=== PATIENT | male | born 1990 | race Caucasian/White ===

== ENCOUNTER 2019-03-22 13:44 | Emergency (ER) | payer SELFPAY ==
[2019-03-22] MEDS ORDERED: Sodium Chloride 0.9% 1,000 ML IV ONE (14:03)
[2019-03-22] MEDS ORDERED: Ketorolac 30 MG/ML SDV IVPUSH ONE (14:03)
[2019-03-22] MEDS ORDERED: Ondansetron 4 MG/2 ML SDV IVPUSH ONE (14:03)
[2019-03-22] MEDS ORDERED: Pantoprazole 40 MG Vial IVPUSH ONE (14:05)
[2019-03-22] MEDS ORDERED: Sodium Chloride 0.9% 10 ML SDV IV STA (14:07)
[2019-03-22 14:26] LABS: BLOOD UREA NITROGEN,BUN 17 mg/dL (7.0-18.0); CARBON DIOXIDE,CO2 29.3 mmol/L (21.0-32.0); CHLORIDE,CL 104 mmol/L (98-107); GLUCOSE RANDOM 95 mg/dL (74-106); LIPASE 169 U/L (73-393); POTASSIUM,K 3.8 mmol/L (3.5-5.1); SODIUM,NA 141 mmol/L (136-148)
--- NOTE | 2019-03-22 14:26 | EDM.PDOC ---
ED HPI GENERAL MEDICAL PROBLEM - General Chief Complaint: Abdominal Pain Stated Complaint: ABDOMINAL PAIN Time Seen by Provider: 03/22/19 13:48 Source of Information: Reports: Patient History Limitations: Reports: No Limitations - History of Present Illness INITIAL COMMENTS - FREE TEXT/NARRATIVE: HISTORY AND PHYSICAL: History of present illness: Patient is a 28-year-old male presents to the ED today for concern of upper abdominal pain 4 days. Patient states the pain had been coming and going over the past 2 days has become constant. Patient denies any abdominal surgeries or any health history. Patient states he does drink frequently but does not drink daily. Patient states he does smoke cigarettes at about half a pack to a pack a day. Patient states he's been drinking Pepto-Bismol constantly over the past 4 days with mild relief of symptoms. Patient states he has noticed over the past 1 -2 days that his stools are dark. Patient denies any other symptoms or concerns. Patient denies fever, chills, chest pain, shortness of breath, or cough. Denies headache, neck stiff ness, change in vision, syncope, or near syncope. Denies nausea, vomiting, diarrhea, constipation, or dysuria. Has not noted any blood in urine. Patient has been eating and drinking appropriately. Review of systems: As per history of present illness and below otherwise all systems reviewed and negative. Past medical history: As per history of present illness and as reviewed below otherwise noncontributory. Surgical history: As per history of present illness and as reviewed below otherwise noncontributory. Social history: See social history for further information Family history: As per history of present illness and as reviewed below otherwise noncontributory. Physical exam: General: Patient is alert, oriented, and in no acute distress. Patient laying comfortably on exam table. HEENT: Atraumatic, normocephalic, pupils equal and reactive bilaterally, negative for conjunctival pallor or scleral icterus, mucous membranes moist, TMs normal bilaterally, throat clear, neck supple, nontender, trachea midline. No drooling or trismus noted. No meningeal signs. No hot potato voice noted. Lungs: Clear to auscultation, breath sounds equal bilaterally, chest nontender. Heart: S1S2, regular rate and rhythm without overt murmur Abdomen: Soft, nondistended. Moderate tenderness of the epigastric area with guarding. Negative rebound. Negative for masses or hepatosplenomegaly. Negative for costovertebral tenderness. Pelvis: Stable nontender. Genitourinary: Deferred. Rectal: Hemoccult positive. Tone intact. No obvious fissures, hemorrhoids, rashes, or lesions. Skin: Intact, warm, dry. No lesions or rashes noted. Extremities: Atraumatic, negative for cords or calf pain. Neurovascular unremarkable. Neuro: Awake, alert, oriented. Cranial nerves II through XII unremarkable. Cerebellum unremarkable. Motor and sensory unremarkable throughout. Exam nonfocal. Notes: Dr. Carvalho verbally involved in patient care. Hemoccult positive. Dr. Chao, general surgery, discussed patient diagnostics and physical exam. She desires patient to call clinic tomorrow and establish at appointment time with her as outpatient. Discussed the importance for follow-up with general surgery. Voices understanding and is agreeable to plan of care. Denies any further questions or concerns at this time. Diagnostics: CBC, CMP, UA, lipase, abdominal pelvic CT, hemeoccult Therapeutics: Saline, Toradol, Zofran, Protonix Prescription: None Impression: Epigastric abdominal pain Melena Plan: 1. Take over the counter Prilosec 2 times a day until follow up with general surgery. 2. You can take Tylenol as directed for pain and discomfort. 3. Follow up with general surgery, Dr. Chao, as discussed. Call the clinic in the morning to establish an appointment time. 4. Return to the ED as needed and as discussed. Definitive disposition and diagnosis as appropriate pending reevaluation and review of above. epigastric Pain Score (Numeric/FACES): 10 - Related Data Allergies Allergy/AdvReac Type Severity Reaction Status Date / Time No Known Allergies Allergy Verified 03/22/19 13:52 Home Meds: Home Meds . [No Known Home Meds] 03/22/19 [History] Past Medical History HEENT History: Reports: None Cardiovascular History: Reports: None Respiratory History: Reports: None Gastrointestinal History: Reports: None Genitourinary History: Reports: None Musculoskeletal History: Reports: None Neurological History: Reports: None Psychiatric History: Reports: None Endocrine/Metabolic History: Reports: None Hematologic History: Reports: None Immunologic History: Reports: None Oncologic (Cancer) History: Reports: None Dermatologic History: Reports: None - Past Surgical History Head Surgeries/Procedures: Reports: None HEENT Surgical History: Reports: None Cardiovascular Surgical History: Reports: None Respiratory Surgical History: Reports: None GI Surgical History: Reports: None Male Surgical History: Reports: None Endocrine Surgical History: Reports: None Neurological Surgical History: Reports: None Musculoskeletal Surgical History: Reports: None Oncologic Surgical History: Reports: None Dermatological Surgical History: Reports: None Social & Family History - Family History Family Medical History: Noncontributory - Tobacco Use Smoking Status *Q: Current Every Day Smoker Years of Tobacco use: 10 Packs/Tins Daily: 1 - Caffeine Use Caffeine Use: Reports: Coffee, Energy Drinks, Soda, Tea - Recreational Drug Use Recreational Drug Use: No ED ROS GENERAL - Review of Systems Review Of Systems: ROS reveals no pertinent complaints other than HPI. ED EXAM, GENERAL - Physical Exam Exam: See Below (See dictation) Course - Vital Signs Last Recorded V/S: Last Vital Signs Temp 97.5 F 03/22/19 13:53 Pulse 107 H 03/22/19 13:53 Resp 18 03/22/19 13:53 BP 123/85 03/22/19 13:53 Pulse Ox 100 03/22/19 13:53 - Orders/Labs/Meds Orders: Active Orders 24 hr Category Date Time Status Hemoccult [Fecal Occult Blood Collection] [RC] Care 03/22/19 14:04 Active ASDIRECTED Labs: Laboratory Tests 03/22/19 03/22/19 03/22/19 Range/Units 13:55 13:55 13:57 WBC 10.00 (4.0-11.0) K/uL RBC 4.48 L (4.50-5.90) M/uL Hgb 13.3 (13.0-17.0) g/dL Hct 39.8 (38.0-50.0) % MCV 88.8 (80.0-98.0) fL MCH 29.7 (27.0-32.0) pg MCHC 33.4 (31.0-37.0) g/dL RDW Std Deviation 47.1 (28.0-62.0) fl RDW Coeff of [place] 15 (11.0-15.0) % Plt Count 303 (150-400) K/uL MPV 10.80 (7.40-12.00) fL Neut % (Auto) 46.6 L (48.0-80.0) % Lymph % (Auto) 42.1 H (16.0-40.0) % [place] % (Auto) 8.1 (0.0-15.0) % Eos % (Auto) 2.8 (0.0-7.0) % Baso % (Auto) 0.4 (0.0-1.5) % Neut # (Auto) 4.7 (1.4-5.7) K/uL Lymph # (Auto) 4.2 H (0.6-2.4) K/uL [place] # (Auto) 0.8 (0.0-0.8) K/uL Eos # (Auto) 0.3 (0.0-0.7) K/uL Baso # (Auto) 0.0 (0.0-0.1) K/uL Nucleated RBC % 0.0 /100WBC Nucleated RBCs # 0 K/uL Sodium 141 (136-148) mmol/L Potassium 3.8 (3.5-5.1) mmol/L Chloride 104 (98-107) mmol/L Carbon Dioxide 29.3 (21.0-32.0) mmol/L BUN 17 (7.0-18.0) mg/dL Creatinine 1.1 (0.8-1.3) mg/dL Est Cr Clr Drug Dosing 96.22 mL/min Estimated GFR (MDRD) > 60.0 ml/min Glucose 95 (74-106) mg/dL Calcium 8.4 L (8.5-10.1) mg/dL Total Bilirubin 0.2 (0.2-1.0) mg/dL AST 26 (15-37) IU/L ALT 28 (14-63) IU/L Alkaline Phosphatase 52 (46-116) U/L Total Protein 7.3 (6.4-8.2) g/dL Albumin 3.6 (3.4-5.0) g/dL Globulin 3.7 (2.6-4.0) g/dL Albumin/Globulin Ratio 1.0 (0.9-1.6) Lipase 169 (73-393) U/L Urine Color YELLOW Urine Appearance CLOUDY Urine pH 7.5 (5.0-8.0) Ur Specific [place] 1.020 (1.001-1.035) Urine Protein NEGATIVE (NEGATIVE) mg/dL Urine Glucose (UA) NEGATIVE (NEGATIVE) mg/dL Urine Ketones NEGATIVE (NEGATIVE) mg/dL Urine Occult Blood NEGATIVE (NEGATIVE) Urine Nitrite NEGATIVE (NEGATIVE) Urine Bilirubin NEGATIVE (NEGATIVE) Urine Urobilinogen 0.2 (<2.0) EU/dL Ur Leukocyte Esterase NEGATIVE (NEGATIVE) Meds: Medications Discontinued Medications Generic Name Dose Route Start Last Admin Trade Name Freq PRN Reason Stop Dose Admin Sodium Chloride 1,000 mls @ 999 mls/hr 03/22/19 14:03 03/22/19 14:16 Normal Saline IV 03/22/19 15:03 999 mls/hr BOLUS ONE Administration Iopamidol 80 ml 03/22/19 14:52 03/22/19 14:52 Isovue Multipack-370 (76%) IVPUSH 03/22/19 14:53 80 ml ONETIME STA Administration Ketorolac Tromethamine 30 mg 03/22/19 14:03 03/22/19 14:16 Toradol IVPUSH 03/22/19 14:04 30 mg ONETIME ONE Administration Ondansetron HCl 4 mg 03/22/19 14:03 03/22/19 14:16 Zofran IVPUSH 03/22/19 14:04 4 mg ONETIME ONE Administration Pantoprazole Sodium 80 mg 03/22/19 14:05 03/22/19 14:16 Protonix Iv IVPUSH 03/22/19 14:06 80 mg .BOLUS ONE Administration Sodium Chloride 20 ml 03/22/19 14:07 03/22/19 14:17 Normal Saline IV 03/22/19 14:08 20 ml STAT STA Administration Departure - Departure Time of Disposition: 15:20 Disposition: Home, Self-Care 01 Clinical Impression: Epigastric abdominal pain, Melena - Discharge Information Referrals: PCP,None [Primary Care Provider] - Forms: ED Department Discharge Additional Instructions: The following information is given to patients seen in the emergency department who are being discharged to home. This information is to outline your options for follow-up care. We provide all patients seen in our emergency department with a follow-up referral. The need for follow-up, as well as the timing and circumstances, are variable depending upon the specifics of your emergency department visit. If you don't have a primary care physician on staff, we will provide you with a referral. We always advise you to contact your personal physician following an emergency department visit to inform them of the circumstance of the visit and for follow-up with them and/or the need for any referrals to a consulting specialist. The emergency department will also refer you to a specialist when appropriate. This referral assures that you have the opportunity for follow-up care with a specialist. All of these measure are taken in an effort to provide you with optimal care, which includes your follow-up. Under all circumstances we always encourage you to contact your private physician who remains a resource for coordinating your care. When calling for follow-up care, please make the office aware that this follow-up is from your recent emergency room visit. If for any reason you are refused follow-up, please contact the [facility] Emergency Department at and asked to speak to the emergency department charge nurse. [facility] [address] [place] [address] [place] [address] [facility] - General Surgery, Dr. Chao Professional [address], [address] [place] [address] 1. Take over the counter Prilosec 2 times a day until follow up with general surgery. 2. You can take Tylenol as directed for pain and discomfort. 3. Follow up with general surgery, Dr. Chao, as discussed. Call the clinic in the morning to establish an appointment time. 4. Return to the ED as needed and as discussed. - My Orders Last 24 Hours: My Active Orders 03/22/19 14:04 Hemoccult [Fecal Occult Blood Collection] [] ASDIRECTED - Assessment/Plan Last 24 Hours: My Active Orders 03/22/19 14:04 Hemoccult [Fecal Occult Blood Collection] [] ASDIRECTED
[2019-03-22] MEDS ORDERED: Iopamidol 755 MG/ML 500 ML Multipack Bottle IVPUSH STA (14:52)
--- NOTE | 2019-03-22 15:10 | CT ---
INDICATION: Upper abdominal pain for 4-5 days. Black stool starting today. TECHNIQUE: CT of the abdomen and pelvis performed after IV injection of 80 mL Isovue 370. FINDINGS: ill-defined large density and fluid within the stomach related to recent ingestion of food and fluid. Markedly contracted gallbladder with nonspecific increased enhancement of the gallbladder wall. Small bowel and colon unremarkable. Appendix is normal. Remainder negative. IMPRESSION: No acute disease in the abdomen or pelvis. Please note that all CT scans at this facility use dose modulation, iterative reconstruction, and/or weight-based dosing when appropriate to reduce radiation dose to as low as reasonably achievable. Dictated by Ronny Holley MD @ Mar 22 2019 3:05PM Signed by Dr. Ronny Holley @ Mar 22 2019 3:07PM
== END 2019-03-22 15:30 | disposition home or self-care (01) ==
LOC: MW.ED 13:44
DX: R10.13 Epigastric pain (principal); K92.1 Melena; F17.210 Nicotine dependence, cigarettes, uncomplicated
CPT/HCPCS: 36415; 74177; 80053; 81003; 83690; 85025; 96361; 96374; 96375; 99284; C9113; J1885; J2405; J7040; J7050; Q9967